=== PATIENT | female | born 1990 | race Two or more races ===

== ENCOUNTER 2017-05-04 17:51 | Emergency (ER) | payer OTHER ==
[2017-05-04] MEDS ORDERED: Lactated Ringer's 1,000 ML IV ONE (18:50)
[2017-05-04] MEDS ORDERED: Dextrose 5%/Lactated Ringer's 1,000 ML IV SCH (20:15)
--- NOTE | 2017-05-04 20:52 | OBHP ---
Datetime: 05/04/2017 18:20 IP Adm Impression: , intrauterine IP Chief Complaint Other: NST/BPP IP Adm Impression Other: nst reactive; bpp 12/29 IP Admit Plan: Discharge home Admit Comment, IP Provider: Patient is a 27 year old at 32w1d with DEIDRE 06/[birth year] presents to L+D f or NST/BPP. Patient was sent in from the office for decreased movement. States that baby hasnt been moving like usual for past two days however baby is moving well now. Endorses +FM, denies CTX, L OF, VB. Denies headaches, dizziness, visual changes, sob, cp, palpitations, RUQ/epigastric pain. This is a private patient of Dr Berrios. Issues: Denies OB Hx: 1. Current [employer] Hx: LMP 09/18/16 [facility] - 14 x regular x 5 days Hx of L ovarian cysts Denies hx of fibroids, STIs, abnormal pap smears Allergies: NKDA Medications: PNV Medical Hx: Chronic HTN Surgical Hx: Bilateral Bunion removal Social Hx: Denies alcohol, tobacco, drug use Family Hx: Mother - HTN, Father - healthy PE: See above A/P: 27 year old with hx of Chronic HTN, presents for NST/BPP for decreased FM -Stable, afebrile -CEFM and TOCO -IV hydration -Will send for BPP once tracing is reactive -Discussed plan with attending Aimee Buchanan DO PGY-1 OB Addendum: NST is reactive, BPP prelim report 12/29. labor precautions given. Patient to f ollow up with the office as regularly scheduled. Plan discussed with attending. OB attending Patient examined.agree with resident exam, assessment and plan Extremities - PN: Normal Abdomen - PN: Normal Lungs - PN: Normal Heart - PN: Normal General - PN: Normal FHR - Baseline A Provider: 140 Comments, ACOG Physical Exam: VSS Gen: AAOx3 CV: RRR Lungs: CTA B/L Abd: Soft, gravid Ext: No calf tenderness SVE: deffered IP Hx Assessment: The History has been Reviewed and is Current EGA AdmitDate IP: 32.1 Vital Signs Provider: Reviewed; Within Normal Limits IP Chief Complaint: Other NICHD Variability Prov Fetus A: Moderate 6-25bpm NICHD Accel Fetus A IP Provider: 10X10 FHR Category Provider Fetus A: Category I NICHD Decel Fetus A IP Provider: None
--- NOTE | 2017-05-04 20:57 | US ---
EXAM: US After First Trimester, Transabdominal CLINICAL HISTORY: 27 years old, female; Screening exam; Encounter for screening of mother; Third; ; Additional info: wellbeing TECHNIQUE: Real-time transabdominal obstetrical ultrasound of the maternal pelvis and a second or third trimester with image documentation. COMPARISON: No relevant prior studies available. FINDINGS: Fetus: Single live intrauterine gestation. Heart rate: heart rate of 146 beats per minute. Presentation: Breech. Placenta: Posterior. No placenta previa or abruption. Amniotic fluid: Normal. JESSICA = 11.8 cm. Anatomy: No gross anomaly is appreciated. BIOMETRICS Gestational age by US: Estimated gestational age of 32 weeks 4 days by measurements. EFW: Estimated weight of 1917 g. BPD: 8.3 cm, correlating with 33 weeks 2 days. HC: 29.7 cm, correlating with 32 weeks 6 days. AC: 27.8 cm, correlating with 31 weeks 6 days. FL: 6.2 cm, correlating with 32 weeks 1 day. MATERNAL: Uterus: Unremarkable. No myometrial mass. Cervix: No cervical dilatation or effacement. Free fluid: No free fluid. IMPRESSION: 1. Single live intrauterine gestation. EXAM: US Biophysical Profile Without Non-Stress Testing CLINICAL HISTORY: 27 years old, female; Screening exam; Encounter for screening of mother; Third; ; Additional info: wellbeing TECHNIQUE: Real-time ultrasound of the maternal pelvis for biophysical profile evaluation with image documentation. COMPARISON: No relevant prior studies available. FINDINGS: breathing movements: Present. Score 2/2. Gross body movements: Present. Score 2/2. tone: Present. Score 2/2. Qualitative amniotic fluid volume: Within normal limits. Score 2/2. IMPRESSION: Normal biophysical profile ultrasound. Score 8/8.
[2017-05-05 00:50] VITALS: BP 123/58; PULSE 82; RESP 18; TEMP 98.8; O2SAT 98
== END 2017-05-04 20:40 | disposition home or self-care (01) ==
LOC: C.EROB 17:51
DX: Z36.89 Encounter for other specified antenatal screening (principal)
CPT/HCPCS: 76815; 76818; 99283; J7120